=== PATIENT | male | born 1950 | race Caucasian/White ===

== ENCOUNTER 2022-11-08 06:16 | Inpatient (IN) | payer OTHER ==
[2022-11-06 11:41] VITALS: BMI 29.0
[2022-11-08] MEDS ORDERED: MIDAZOLAM HCL 2 MG/2 ML SINGLE DOSE VIAL ONE ×3 (07:07→09:36)
[2022-11-08] MEDS ORDERED: BUPIVACAINE HCL 50 ML ONE (07:11)
[2022-11-08] MEDS ORDERED: BUPIVACAINE LIPOSOME/PF (EXPAREL) 266 MG/20 ML VIAL ONE (07:13)
[2022-11-08] MEDS ORDERED: BUPIVACAINE HCL/PF 0.5% (5 MG/ML) 30 ML VIAL IJ ONE (07:13)
[2022-11-08] MEDS ORDERED: PROPOFOL 60 ML ONE (09:38)
[2022-11-08] MEDS ORDERED: DEXAMETHASONE SOD PHOSPHATE 4 MG/1 ML VIAL ONE (10:04)
[2022-11-08] MEDS ORDERED: KETOROLAC TROMETHAMINE 30 MG/1 ML VIAL ONE (10:04)
[2022-11-08] MEDS ORDERED: ceFAZolin SODIUM 1 GM VIAL ONE (10:04)
[2022-11-08] MEDS ORDERED: ONDANSETRON 4 MG/2 ML VIAL ONE (10:04)
[2022-11-08] MEDS ORDERED: VANCOMYCIN 1,000 MG VIAL (RESTRICTED TO ID ONLY) ONE (10:04)
[2022-11-08] MEDS ORDERED: TRANEXAMIC ACID 1000 MG/10 ML VIAL ONE (10:04)
[2022-11-08] MEDS ORDERED: PROPOFOL 20 ML ONE ×2 (11:48→12:08)
[2022-11-08] MEDS ORDERED: MAG HYDROX/AL HYDROX/SIMETH 30 ML UNIT-DOSE CUP PO PRN (12:39)
[2022-11-08] MEDS ORDERED: MAGNESIUM HYDROX 2400MG/30ML ORAL SUSPENSION 30 ML CUP PO PRN (12:39)
[2022-11-08] MEDS ORDERED: ONDANSETRON 4 MG/2 ML VIAL IVPUSH PRN ×2 (12:39→12:53)
[2022-11-08] MEDS ORDERED: LACTATED RINGERS SOLUTION 1,000 ML IV SCH (12:45)
[2022-11-08] MEDS ORDERED: FENTANYL CITRATE/PF 50 MCG/ML VIAL ONE ×3 (12:49→12:58)
[2022-11-08] MEDS ORDERED: ACETAMINOPHEN INJECTION 100 ML IVPB ONE (12:49)
[2022-11-08] MEDS: ACETAMINOPHEN 1000 MG/100 ML BAG IVPB ONE (12:52)
[2022-11-08] MEDS ORDERED: oxyCODONE HCL 5 MG TABLET ONE (13:29)
[2022-11-08] MEDS: oxyCODONE HCL 5 MG TABLET PO PRN ×2 (13:30→16:09)
[2022-11-08] MEDS: KETOROLAC TROMETHAMINE 30 MG/1 ML VIAL IVPUSH SCH ×2 (14:00→19:28)
[2022-11-08] MEDS: LACTATED RINGERS SOLUTION 1,000 ML IV SCH (16:11)
[2022-11-08] MEDS: ESCITALOPRAM OXALATE 10 MG TABLET PO SCH (17:36)
[2022-11-08] MEDS: PREGABALIN 100 MG CAPSULE PO SCH ×2 (17:37→21:16)
[2022-11-08] MEDS: ATORVASTATIN CA 20 MG TABLET (FP) PO SCH (17:37)
[2022-11-08] MEDS: CEFAZOLIN SODIUM 2 GM in DEXTROSE 5%-WATER 100 ML IVPB SCH (17:38)
[2022-11-08] MEDS: ACETAMINOPHEN 500 MG TABLET (FP) PO SCH (19:27)
[2022-11-08] MEDS ORDERED: CELECOXIB 200 MG CAPSULE ONE (20:55)
[2022-11-08] MEDS: CELECOXIB 100 MG CAPSULE PO SCH (21:15)
[2022-11-08] MEDS: ASPIRIN 81 MG CHEWABLE TABLETS PO SCH (21:15)
[2022-11-08] MEDS: GABAPENTIN 300 MG CAPSULE PO SCH (21:15)
[2022-11-08] MEDS: MIRTAZAPINE 15 MG TABLET (FP) PO SCH (21:16)
[2022-11-08] MEDS: oxyCODONE HCL 10 MG SUSTAINED ACTING TABLET PO SCH (21:16)
[2022-11-08] MEDS: SENNOSIDES/DOCUSATE COMBO (SENNA PLUS) TABLET (UD) PO SCH (21:16)
[2022-11-08] MEDS: LOSARTAN POTASSIUM 25 MG TABLET PO SCH (21:18)
[2022-11-08] MEDS: amLODIPine BESYLATE 10 MG TABLET (FP) PO SCH (21:18)
[2022-11-08] MEDS ORDERED: ZOLPIDEM TARTRATE 5 MG TABLET PO PRN (22:00)
[2022-11-09] MEDS: CEFAZOLIN SODIUM 2 GM in DEXTROSE 5%-WATER 100 ML IVPB SCH ×2 (00:26→06:15)
[2022-11-09] MEDS: ACETAMINOPHEN 500 MG TABLET (FP) PO SCH ×4 (00:27→20:09)
[2022-11-09] MEDS: oxyCODONE HCL 5 MG TABLET PO PRN ×5 (00:27→20:07)
[2022-11-09] MEDS: ACETAMINOPHEN 1000 MG/100 ML BAG IVPB ONE (01:38)
[2022-11-09 08:54] LABS: CALCIUM 8.2 mg/dl (8.5-10); CREATININE 1.1 mg/dl (0.55-1.3)
[2022-11-09] MEDS: PREGABALIN 100 MG CAPSULE PO SCH ×2 (09:44→21:18)
[2022-11-09] MEDS: PANTOPRAZOLE 40 MG TABLET PO SCH (09:44)
[2022-11-09] MEDS: ATORVASTATIN CA 20 MG TABLET (FP) PO SCH (09:44)
[2022-11-09] MEDS: ESCITALOPRAM OXALATE 10 MG TABLET PO SCH (09:44)
[2022-11-09] MEDS: SENNOSIDES/DOCUSATE COMBO (SENNA PLUS) TABLET (UD) PO SCH ×2 (09:44→21:17)
[2022-11-09] MEDS: MULTIVITAMINS (DAILY MVI) TABLET (FP) PO SCH (09:45)
[2022-11-09] MEDS: GABAPENTIN 300 MG CAPSULE PO SCH ×2 (09:45→21:17)
[2022-11-09] MEDS: ASPIRIN 81 MG CHEWABLE TABLETS PO SCH ×2 (09:45→21:18)
[2022-11-09] MEDS: oxyCODONE HCL 10 MG SUSTAINED ACTING TABLET PO SCH ×2 (09:45→21:18)
[2022-11-09] MEDS: CELECOXIB 100 MG CAPSULE PO SCH ×2 (09:45→21:18)
[2022-11-09 10:00] LABS: HEMATOCRIT 31.7 % (35.4-49); HEMOGLOBIN 10.7 G/dL (11.7-16.9); MCH 32.2 pg (25.7-33.7); MCHC 33.7 g/dl (32.0-35.9); MEAN CELL VOLUME 95.4 fl (80-96); MEAN PLT VOLUME 9.2 fl (7.5-11.1); PLATELET COUNT 119.9 10^3/uL (134-434); RBC 3.32 10^6/uL (4.00-5.60); RDW 13.4 % (11.9-15.9); WHITE BLOOD COUNT 8.3 10^3/uL (4.0-10.8)
[2022-11-09 19:02] VITALS: RESP 18
[2022-11-09] MEDS: MIRTAZAPINE 15 MG TABLET (FP) PO SCH (21:18)
[2022-11-09] MEDS: LACTATED RINGERS SOLUTION 1,000 ML IV SCH (21:19)
[2022-11-09] MEDS: amLODIPine BESYLATE 10 MG TABLET (FP) PO SCH (21:20)
[2022-11-09] MEDS: LOSARTAN POTASSIUM 25 MG TABLET PO SCH (21:20)
[2022-11-10] MEDS: ACETAMINOPHEN 500 MG TABLET (FP) PO SCH ×3 (04:37→13:17)
[2022-11-10] MEDS: oxyCODONE HCL 5 MG TABLET PO PRN ×2 (06:53→13:16)
[2022-11-10 09:11] LABS: ALBUMIN 2.9 g/dl (3.4-5.0); BILIRUBIN,TOTAL 0.6 mg/dl (0.2-1); CALCIUM 8.2 mg/dl (8.5-10); CREATININE 0.9 mg/dl (0.55-1.3); TOT PROT 5.3 g/dl (6.4-8.2)
[2022-11-10] MEDS: GABAPENTIN 300 MG CAPSULE PO SCH (09:23)
[2022-11-10] MEDS: CELECOXIB 100 MG CAPSULE PO SCH (09:24)
[2022-11-10] MEDS: ASPIRIN 81 MG CHEWABLE TABLETS PO SCH (09:24)
[2022-11-10] MEDS: MULTIVITAMINS (DAILY MVI) TABLET (FP) PO SCH (09:24)
[2022-11-10] MEDS: ATORVASTATIN CA 20 MG TABLET (FP) PO SCH (09:24)
[2022-11-10] MEDS: PREGABALIN 100 MG CAPSULE PO SCH (09:24)
[2022-11-10] MEDS: ESCITALOPRAM OXALATE 10 MG TABLET PO SCH (09:25)
[2022-11-10] MEDS: PANTOPRAZOLE 40 MG TABLET PO SCH (09:25)
[2022-11-10] MEDS: SENNOSIDES/DOCUSATE COMBO (SENNA PLUS) TABLET (UD) PO SCH (09:25)
[2022-11-10] MEDS: oxyCODONE HCL 10 MG SUSTAINED ACTING TABLET PO SCH (09:26)
[2022-11-10 09:30] VITALS: BP 106/39; PULSE 58; TEMP 98.7
[2022-11-10 09:34] LABS: BASO % 0.5 % (0-2.0); EOS % 2.4 % (0-4.5); HEMATOCRIT 31.9 % (35.4-49); HEMOGLOBIN 10.9 GM/dL (11.7-16.9); LYMPH % 13.3 % (8-40); MCH 32.6 pg (25.7-33.7); MCHC 34.3 g/dl (32.0-35.9); MEAN PLT VOLUME 9.7 fl (7.5-11.1); MONO % 10.3 % (3.8-10.2); NEUT % 73.5 % (42.8-82.8); PLATELET COUNT 101 10^3/uL (134-434); RBC 3.36 M/mm3 (4.00-5.60); RDW 13.9 % (11.9-15.9); WHITE BLOOD COUNT 8.7 K/mm3 (4.0-10.0)
[2022-11-10] MEDS: LACTATED RINGERS SOLUTION 1,000 ML IV SCH (13:19)
== END 2022-11-10 13:37 | disposition home or self-care (01) | DRG 470 ==
LOC: FM/S 06:16
PROVIDERS: ADMIT Orthopaedic Surgery Orthopaedic Surgery of the Spine; ATTEND Orthopaedic Surgery Orthopaedic Surgery of the Spine
PROC: 0SRC0J9 Replacement of Right Knee Joint with Synthetic Substitute, Cemented, Open Approach (ICD-10-PCS; principal; 2022-11-08 10:12)
DX: M17.11 Unilateral primary osteoarthritis, right knee (principal); I10 Essential (primary) hypertension; E78.5 Hyperlipidemia, unspecified; F41.8 Other specified anxiety disorders; K21.9 Gastro-esophageal reflux disease without esophagitis
CPT/HCPCS: 36415; 73560-TC-RT-FY; 80048; 80053; 85025; 85027; 88305-TC; 88311-TC; 94760; 97010-GP; 97116-GP; 97162-GP; C1713; C1776